=== PATIENT | male | born 1960 | race African-American/Black ===

== ENCOUNTER 2018-11-01 17:38 | Emergency (ER) | payer OTHER ==
[~2018-11-01] VITALS: Ht 180.3 cm; Wt 81.7 kg
[2018-11-01 17:57] LABS: ABSOLUTE NEUTROPHILS 2.6 thou/uL (1.4-8.2); BASOPHILS 1.4 % (0.0-2.0); EOSINOPHILS 1.7 % (0.0-3.0); HEMATOCRIT 44.2 % (42.0-52.0); HEMOGLOBIN 14.7 gm/dL (14.0-18.0); MCH 30.8 pg (26.0-34.0); MCHC 33.2 g/dL (28.0-37.0); MONOCYTES 11.2 % (1.0-8.0); PLATELET COUNT 191 thou/uL (150-400); POLYS 49.7 % (36.0-66.0); RBC 4.75 mil/uL (4.50-6.00); RDW 14.1 % (10.5-14.5); WBC 5.3 thou/uL (4.0-11.0)
[2018-11-01 18:07] LABS: CALCIUM 9.4 mg/dL (8.5-10.1); CREATININE 1.1 mg/dL (0.7-1.3)
[2018-11-01 18:14] LABS: ALBUMIN 4.2 g/dL (3.4-5.0); TOTAL BILIRUBIN 0.4 mg/dL (<0.1-1.0); TOTAL PROTEIN 8.5 g/dL (6.4-8.2)
[2018-11-01 18:21] VITALS: BP 137/118
[2018-11-01 18:42] LABS: AMP/METHAMP Negative (Negative); BARBITURATES Negative (Negative); BENZODIAZEPINES Negative (Negative); COCAINE POSITIVE (Negative); METHADONE Negative (Negative); OPIATES Negative (Negative); PCP POSITIVE (Negative)
== END 2018-11-01 18:45 | disposition home or self-care (01) ==
LOC: ER 17:38
PROVIDERS: Physician Assistant
DX: F10.94 Alcohol use, unspecified with alcohol-induced mood disorder (principal); R41.82 Altered mental status, unspecified; F17.210 Nicotine dependence, cigarettes, uncomplicated; Y90.0 Blood alcohol level of less than 20 mg/100 ml